=== PATIENT | male | born 1995 | race Caucasian/White ===

== ENCOUNTER → 2018-12-20 | Outpatient (CLI) | payer OTHER ==
--- NOTE | 2018-12-20 17:35 | RADIOLOGY IMAGING REPORT ---
FACILITY: [facility] - [place] PATIENT NAME: Emerson Simon : 1995 MR: [id number] V: [id number] EXAM DATE: ORDERING PHYSICIAN: SANDRA THAPA TECHNOLOGIST: Location: [facility] Patient: Emerson Simon : 1995 Visit/Account:[id number] Date of Sevice: 12/20/2018 TESTICULAR HISTORY: Pain and swelling of right testicle COMPARISON: None. FINDINGS: Testes: Right testicle measures 3.6 x 2.2 x 3.1 cm. Left testicle measures 5 x 2.9 x 3.1 cm Symmetr ic and unremarkable blood flow documented by color and Duplex Doppler ultrasound. Epididymides: The head the epididymis on the right measures 1.6 x 0.8 x 2.6 cm there is increased blo od flow seen throughout the epididymis on the right. The head the epididymis on the left measures 7 x 11 x 16 mm with mild increased blood flow seen throughout the left epididymis. Blood flow is unrem arkable in each epididymis by color Doppler ultrasound. Hydrocele: None. Varicocele: None. IMPRESSION: The epididymis on the right is prominent and extremely hypervascular. The epididymis on the left is slightly hypervascular but to a lesser extent than the right. Spines are likely related to bilateral epididymitis Results were called to Dr. Jose Stephen at 12/20/2018 5:30 PM. Report Dictated By: Sherrie Her MD at 12/20/2018 5:23 PM Report E-Signed By: Sherrie Her MD at 12/20/2018 5:30 PM WSN:[email or web address]
== END ==
LOC: US 16:19
PROVIDERS: ATTEND Nurse Practitioner Family
DX: N50.811 Right testicular pain (principal); N50.89 Other specified disorders of the male genital organs
CPT/HCPCS: 76870

== ENCOUNTER → 2019-01-06 | Outpatient (CLI) | payer OTHER ==
--- NOTE | 2019-01-06 16:24 | RADIOLOGY IMAGING REPORT ---
FACILITY: [facility] - [place] PATIENT NAME: Emerson Simon : 1995 MR: [id number] V: [id number] EXAM DATE: ORDERING PHYSICIAN: ALBARO VAZQUEZ TECHNOLOGIST: Location: [facility] - [place] Patient: Emerson Simon : 1995 Visit/Account:[id number] Date of Sevice: 01/06/2019 Exam type: HAND COMPLETE RIGHT History: Injury x1 day, pain and swelling second metacarpal Comparison: None. Findings: There is no evidence of acute fracture or dislocation involving the right hand. No significant arthr itic changes identified. No radiopaque soft tissue foreign body is seen IMPRESSION: 1. No acute osteoarticular abnormality the right hand is seen Report Dictated By: Sherrie Her MD at 01/06/2019 4:18 PM Report E-Signed By: Sherrie Her MD at 01/06/2019 4:20 PM WSN:[email or web address]
== END ==
LOC: RAD 13:47
PROVIDERS: ATTEND Emergency Medicine Sports Medicine
DX: M79.641 Pain in right hand (principal)